=== PATIENT | female | born 1985 | race Caucasian/White ===

== ENCOUNTER 2018-10-06 15:14 | Observation (INO) | payer OTHER ==
--- NOTE | 2018-10-06 15:21 | PDOC ---
Rapid Medical Evaluation Chief Complaint: Syncope/Near Syncope Time Seen by Provider: 10/06/18 15:18 Medical Evaluation: Allergies Allergy/AdvReac Type Severity Reaction Status Date / Time No Known Allergies Allergy Verified 10/06/18 15:18 10/06/18 15:18 The patient presents with a chief complaint of: syncopized hitting right side of head, no recent illness or drug use, hx anxiety I have performed a brief in-person evaluation of this patient: noted hematoma to rt side of eyebrow, vss Pertinent physical exam findings: ambulatory, in no respiratory distress I have ordered the following: ekg, labs, ct head and face The patient will proceed to the ED for further evaluation. Discharge Disposition - Diagnosis Syncope - Discharge Dispostion Disposition: HOME Condition at time of disposition: Stable - Referrals - Patient Instructions - Post Discharge Activity
[2018-10-06 15:55] LABS: BASO % 0.4 % (0-2.0); EOS % 0.1 % (0-4.5); HEMATOCRIT 39.2 % (32.4-45.2); HEMOGLOBIN 13.2 GM/dL (10.7-15.3); LYMPH % 12.3 % (8-40); MCH 28.5 pg (25.7-33.7); MCHC 33.7 g/dl (32.0-36.0); MEAN CELL VOLUME 84.5 fl (80-96); MEAN PLT VOLUME 9.1 fl (7.5-11.1); MONO % 4.3 % (3.8-10.2); NEUT % 82.9 % (42.8-82.8); PLATELET COUNT 258 K/MM3 (134-434); RBC 4.64 M/mm3 (3.60-5.2); WHITE BLOOD COUNT 13.4 K/mm3 (4.0-10.0)
[2018-10-06 16:22] LABS: URINE APPEARANCE SLCLOUDY; URINE BILIRUBIN NEGATIVE (<2.0 mg/dL); URINE COLOR LTYELLOW; URINE GLUCOSE (UA) NEGATIVE (NEGATIVE); URINE KETONE NEGATIVE (NEGATIVE); URINE LEUK ESTERASE NEGATIVE (NEGATIVE); URINE NITRITE NEGATIVE (NEGATIVE); URINE PROTEIN NEGATIVE (NEGATIVE); URINE UROBILINOGEN NEGATIVE mg/dL (0.2-1.0)
[2018-10-06 16:38] LABS: ALBUMIN 3.8 g/dl (3.4-5.0); ALK PHOS 47 U/L (45-117); ANION GAP 7 MMOL/L (8-16); BILIRUBIN,TOTAL 0.1 mg/dL (0.2-1); BLOOD UREA NITROGEN 15 mg/dL (7-18); CALCIUM 9.1 mg/dL (8.5-10.1); CHLORIDE 100 mmol/L (98-107); CO2 26 mmol/L (21-32); CREATININE 1.1 mg/dL (0.55-1.3); GLUCOSE,RANDOM 106 mg/dL (74-106); SGOT/AST 29 U/L (15-37); SGPT/ALT 24 U/L (13-61); SODIUM 133 mmol/L (136-145); TOT PROT 7.6 g/dl (6.4-8.2)
[2018-10-06] MEDS ORDERED: ACETAMINOPHEN 1000 MG/100 ML VIAL (NON FORMULARY) IVPB ONE (16:46)
[2018-10-06] MEDS ORDERED: METOCLOPRAMIDE HCL INJECTION 10 MG/2 ML VIAL IVPUSH ONE (16:46)
[2018-10-06] MEDS ORDERED: SODIUM CHLORIDE 1,000 ML IV STA (16:46)
[2018-10-06] MEDS ORDERED: ACETAMINOPHEN INJECTION 100 ML IVPB ONE (16:54)
[2018-10-06] MEDS ORDERED: METOCLOPRAMIDE HCL INJECTION 10 MG/2 ML VIAL ONE (16:54)
--- NOTE | 2018-10-06 16:59 | PDOC ---
Attending Attestation - HPI HPI: 10/06/18 18:47 Patient is a 33 year old female with history of hypothyroidism and anxiety/ depression who presents to the ER s/p syncopal episode this afternoon. The patient states she noticed her right hand shaking, then stood up to get water and next thing she remembers is waking up on the ground. Denies history of seizures. She reports her brother at 23 from a "possible heart attack." She reports having a negative stress test and ECHO done recently. Patient denies any chest pain, shortness of breath, headache, abdominal pain, dysuria, fevers, chills, nausea, vomiting. No bowel or bladder incontinence. Allergies: NKDA Surgeries: No reported surgeries. Social Hx: No reported alcohol, drug or cigarette use. - Physicial Exam PE: 10/06/18 18:56 ADULT PHYSICAL EXAM Constitutional: Awake, alert, oriented. No acute distress. Head: Normocephalic. Atraumatic Eyes: PERRL. EOMI. Conjunctivae are not pale. (+) soft tissue swelling over the right eye. ENT: (+) Bite jamee to the right side of the tongue with ecchymosis. No laceration/ Cardiovascular: Regular rate. Regular rhythm. S1, S2 regular. Distal pulses are 2+ and symmetric. Pulmonary/Chest: No evidence of respiratory distress. Clear to auscultation bilaterally No wheezing, rales or rhonchi. Abdominal: Soft and non-distended. There is no tenderness. No rebound, guarding or rigidity. No organomegaly. No palpable masses. Good bowel sounds. Back: (+) No C, T, or L spine. Musculoskeletal: No edema. No cyanosis. No clubbing. Full range of motion in all extremities. Nocalf tenderness. Radial/pedal pulses are intact and 2+ bilaterally Skin: Skin is warm and dry. No petechiae. No purpura. No external signs of trauma. Neurological: Strength is 5/5. No tremors. Psychiatric: Good eye contact. Normal interaction, affect and behavior. <Saniya Garcia - Last Filed: 10/06/18 18:59> - Resident Resident Name: Oh Hester - ED Attending Attestation I have performed the following: I have examined & evaluated the patient, The case was reviewed & discussed with the resident, I agree w/resident's findings & plan, Exceptions are as noted - Medical Decision Making 10/06/18 16:56 I, Dr. Ting Watson, DO, attest that this document has been prepared under my direction and personally reviewed by me in its entirety. I further attest, that it accurately reflects all work, treatment, procedures and medical decision -making performed by me. 10/06/18 19:17 a/p: 33yo female with syncope vs seizure today -states r hand shaking and then woke up on the floor -small abrsion/hematoma to R eyebrow -abnl ekg -fam hx of brother from [place]/sudden cardiac at 23 -started supplements for working out a month ago -no change in her welbutrin dose -will send labs, head ct, trop, tsh -sometimes does take extra of thyroid meds -no [place] prior to episode. no cp/sob -on ocp, will add dimer -will need obs for further eval 10/06/18 20:13 resident discussed the case with DAVID who accepts pt to service <Ting Watson - Last Filed: 10/06/18 20:14> Heart Score/ECG Review - ECG Intrepretation Comment:: 10/06/18 19:19 sinus at 93, nl axis, incomplete rbbb, t wave inversions v2-3, abnl ekg <Ting Watson - Last Filed: 10/06/18 20:14>
--- NOTE | 2018-10-06 17:16 | PDOC ---
History of Present Illness - General Chief Complaint: Syncope/Near Syncope Stated Complaint: FALL Time Seen by Provider: 10/06/18 15:18 History Source: Patient Exam Limitations: No Limitations - History of Present Illness Initial Comments: 10/06/18 17:10 Patient is a 33F with history of hypothyroidism and anxiety/depression (on wellbutrin/zoloft) here today complaining of passing out this afternoon. Patient states that she was in the kitchen and the next thing she remembers she was on the floor. She endorses diffuse bodyaches and confusion, stating that she was unable to remember her phone number at first. She denies history of seizures in the past and in the family. She states that her brother at 23 from a "heart attack". She reports that she then saw a service desk technician, had multiple tests done including echo and stress, all of which were negative. Patient reports not sleeping well last night, denies recent alcohol and drug use. LMP 4 weeks ago. Patient complains of pain to her head, denies other focal pain. Denies neck pain , chest pain, abdominal pain, dysuria, fevers, chills, vomiting. Endorses nausea. No bowel or bladder incontinence. Past History - Past Medical History Allergies/Adverse Reactions: Allergies Allergy/AdvReac Type Severity Reaction Status Date / Time No Known Allergies Allergy Verified 10/06/18 15:18 Home Medications: Ambulatory Orders Bupropion HCl [Wellbutrin -] 100 mg PO DAILY 10/06/18 Levothyroxine [Synthroid -] 100 mcg PO DAILY 10/06/18 Sertraline HCl [Zoloft] 100 mg PO DAILY 10/06/18 Zolpidem Tartrate [Ambien] 10 mg PO HS PRN 10/06/18 COPD: No Seizures: Yes Lung CA: Yes - Suicide/Smoking/Psychosocial Hx Smoking History: Never smoked Review of Systems - Review of Systems Comments:: 10/06/18 17:17 GENERAL/CONSTITUTIONAL: No fever or chills. No weakness. HEAD, EYES, EARS, NOSE AND THROAT: No change in vision. No sore throat. CARDIOVASCULAR: No chest pain or shortness of breath RESPIRATORY: No cough, wheezing, or hemoptysis. GASTROINTESTINAL: +nausea, no vomiting, diarrhea or constipation. GENITOURINARY: No dysuria, frequency, or change in urination. MUSCULOSKELETAL: No joint or muscle swelling or pain. No neck or back pain. SKIN: No rash NEUROLOGIC: +headache, +loss of consciousness, no change in strength/sensation. ENDOCRINE: No increased thirst. No abnormal weight change HEMATOLOGIC/LYMPHATIC: No anemia, easy bleeding, or history of blood clots. ALLERGIC/IMMUNOLOGIC: No hives or skin allergy. *Physical Exam - Vital Signs Last Vital Signs Temp Pulse Resp BP Pulse Ox 98.9 F 99 H 18 114/78 100 10/06/18 15:18 10/06/18 15:18 10/06/18 15:18 10/06/18 15:18 10/06/18 15:18 - Physical Exam Comments: 10/06/18 17:19 GENERAL: Awake, alert, and fully oriented, in no acute distress HEAD: Normocephalic, hematoma around right eye, several smaller scratches to face EYES: PERRLA, EOMI, sclera anicteric, conjunctiva clear ENT: Auricles normal inspection, hearing grossly normal, nares patent, tongue bruising and laceration on right lateral aspect of tongue NECK: Normal ROM, supple, no lymphadenopathy, JVD, or masses, no midline tenderness LUNGS: No distress, speaks full sentences, clear to auscultation bilaterally HEART: Regular rate and rhythm, normal S1 and S2, no murmurs, rubs or gallops, peripheral pulses normal and equal bilaterally. ABDOMEN: Soft, nontender, normoactive bowel sounds. No guarding, no rebound. No masses EXTREMITIES: Multiple small bruises and lacerations along lateral aspects of upper and lower extremities, Normal range of motion, no edema. No clubbing or cyanosis. NEUROLOGICAL: Cranial nerves II through XII grossly intact. Normal speech, normal gait, no focal sensorimotor deficits SKIN: Warm, Dry, normal turgor, no rashes or lesions noted. Moderate Sedation - Procedure Monitoring Vital Signs: Procedure Monitoring Vital Signs Temperature 98.9 F 10/06/18 15:18 Pulse Rate 99 H 10/06/18 15:18 Respiratory Rate 18 10/06/18 15:18 Blood Pressure 114/78 10/06/18 15:18 O2 Sat by Pulse Oximetry (%) 100 10/06/18 15:18 ED Treatment Course - LABORATORY CBC & Chemistry Diagram: 10/06/18 15:36 10/06/18 15:36 - ADDITIONAL ORDERS Additional order review: Laboratory Results 10/06/18 10/06/18 10/06/18 16:04 16:04 15:36 Sodium 133 L Potassium 4.0 Chloride 100 Carbon Dioxide 26 Anion Gap 7 L BUN 15 Creatinine 1.1 Creat Clearance w eGFR 56.52 Random Glucose 106 Calcium 9.1 Total Bilirubin 0.1 L AST 29 ALT 24 Alkaline Phosphatase 47 Creatine Kinase 177 Creatine Kinase Index 1.5 CK-MB (CK-2) 2.8 Troponin I < 0.02 Total Protein 7.6 Albumin 3.8 TSH 3.12 Urine Color Ltyellow Urine Appearance Slcloudy Urine pH 6.0 Ur Specific [place] 1.018 Urine Protein Negative Urine Glucose (UA) Negative Urine Ketones Negative Urine Blood Negative Urine Nitrite Negative Urine Bilirubin Negative Urine Urobilinogen Negative Ur Leukocyte Esterase Negative Urine HCG, Qual Negative 10/06/18 15:36 RBC 4.64 MCV 84.5 MCHC 33.7 RDW 14.0 MPV 9.1 Neutrophils % 82.9 H Lymphocytes % 12.3 Monocytes % 4.3 Eosinophils % 0.1 Basophils % 0.4 - RADIOLOGY Radiology Studies Ordered: Category Date Time Status HEAD CT WITHOUT CONTRAST [CT] Stat CT Scan 10/06/18 15:21 Ordered CHEST PA & LAT [RAD] Stat Radiology 10/06/18 16:46 Ordered Medical Decision Making - Medical Decision Making 10/06/18 17:21 Patient is 33F with history of depression/anxiety and hypothyroidism here today with seizure vs syncope. Suspect seizure over syncope at this time, but taking careful consideration of syncope given brothers sudden cardiac . Patient on OCPs, will d-dimer. EKG shows NSR with rate of 93. No st elevations/depressions. Dominant R wave in aVR. T wave inversions in V2/V3. QTc prolonged to 479. RBBB pattern without QRS widening. CBC, CMP normal. Preg negative. Pending d-dimer, ct head/facial bones. C-spine cleared clinically with NEXUS. 10/06/18 20:[address] Greene and Dr Ewing, aware. Patient briefly became hypotensive to 80s systolic, resolved after 10 minutes. Case d/w Dr Ojeda, accepted to tele obs. 10/06/18 20:43 POCUS shows normal cardiac squeeze, no gross wall motion abnormality, no gross valve failures, no effusion, no hypertrophy. *DC/Admit/Observation/Transfer Diagnosis at time of Disposition: Syncope - Discharge Dispostion Condition at time of disposition: Stable Decision to Admit order: Yes - Referrals - Patient Instructions - Post Discharge Activity
[2018-10-06 18:58] LABS: INR 0.97 (0.83-1.09); PROTHROMBIN TIME (PATIENT) 11.4 SEC (9.7-13.0)
--- NOTE | 2018-10-06 20:03 | PN ---
Teaching Attending Note Name of Resident: Veronica Gomez ATTENDING PHYSICIAN STATEMENT I saw and evaluated the patient. I reviewed the resident's note and discussed the case with the resident. I agree with the resident's findings and plan as documented. SUBJECTIVE: Patient is a 33 year old woman with PMH of hypothyroidism, PTSD (after her brother's ) and anxiety/depression (on wellbutrin/zoloft) here today complaining of passing out this afternoon. Patient states that she was in the kitchen and the next thing she remembers she was on the floor. She endorses diffuse bodyaches and confusion, stating that she was unable to remember her phone number at first. She denies history of seizures in the past and in the family. She states that her brother at 23 from a "heart attack". She reports that she then saw a linoleum printer, had multiple tests done including echo and stress, all of which were negative. Patient reports not sleeping well last night, denies recent alcohol and drug use. She is on oral contraceptives and LMP was 4 weeks ago. Patient complains of pain to her head, denies other focal pain. Denies neck pain, chest pain, abdominal pain, dysuria, fevers, chills, vomiting. Has nausea. No bowel or bladder incontinence. OBJECTIVE: Alert Vital Signs Period Temp Pulse Resp BP Sys/Welsh Pulse Ox Last 24 Hr 98.9 F 86-99 18-18 88-114/51-78 97-100 HEENT: No Jaundice, eye redness or discharge, PERRLA, EOMI. Bruise and swelling over right eye; small laceration/bite jamee on right side of tongue. Normocephalic. External ears are normal and hearing is grossly intact. No nasal discharge. Neck: Supple, nontender. No palpable adenopathy or thyromegaly. No JVD Chest: Good effort. Clear to auscultation and percussion. Heart: Regular. No S3, rub or murmur Abdomen: Not distended, soft, nontender and no HSM. No rebound or guarding. Normoactive bowel sounds. Ext: Peripheral pulses intact. No leg edema. Mild right shoulder tenderness. Skin: Warm and dry. No petechiae, rash or ecchymosis. Neuro: Alert. Oriented x3. CN 2-12 grossly intact. Sensation grossly intact in all four extremities and DTR are symmetric. Home Medications Medication Instructions Recorded Bupropion HCl [Wellbutrin -] 100 mg PO DAILY 10/06/18 Levothyroxine [Synthroid -] 100 mcg PO DAILY 10/06/18 Sertraline HCl [Zoloft] 100 mg PO DAILY 10/06/18 Zolpidem Tartrate [Ambien] 10 mg PO HS PRN 10/06/18 Abnormal Lab Results 10/06/18 10/06/18 15:36 15:36 WBC 13.4 H Absolute Neuts (auto) 11.1 H Neutrophils % 82.9 H Sodium 133 L Anion Gap 7 L Total Bilirubin 0.1 L ASSESSMENT AND PLAN: 1. Syncope - Presentation suggestive of a seizure event. Head CT, face CT, CXR and limb xrays did not show any acute abnormality or fracture. EKG is NSR with prolonged QTc and fixed changes of t-wave inversion in V1-3 and P wave inversion in V1. Urine toxicology screen is pending. Leukocytosis is likely stress induced - will repeat CBC. No other evidence of infection. Admit to telemetry, get ECHO, EEG, carotid doppler, Mg, Phosphate and brain MRI. Provide care for bruise over right eye. Implement seizure and fall precautions, consult Neurology and cardiology. 2. DVT prophylaxis - Lovenox 40 mg SQ q 24 hours. 3. Advance directives - Full code
[2018-10-06 21:04] LABS: COCAINE, UR NEGATIVE ng/ml (CUTOFF=300); METHADONE, UR NEGATIVE ng/ml (CUTOFF=300); OPIATES, URI NEGATIVE ng/ml (CUTOFF=300); PHENCYCLIDINE,URINE NEGATIVE ng/ml (CUTOFF=25); URINE AMPHETAMINES NEGATIVE ng/ml (CUTOFF=500); URINE BARBITURATES NEGATIVE ng/ml (CUTOFF=200); URINE BENZODIAZEPINES NEGATIVE ng/ml (CUTOFF=200)
[2018-10-06] MEDS ORDERED: ACETAMINOPHEN 325 MG TABLET (FP) PO PRN (21:16)
--- NOTE | 2018-10-06 21:27 | HP ---
CHIEF COMPLAINT:loss of consciousness PCP: HISTORY OF PRESENT ILLNESS: Patient is a 33 year old female with past medical history of hypothyroidisim, depression, anxiety and migraine, presented to the ED after passing out today. Patient reported she was not able to sleep last night, got up today feeling tired. She reports having a throbbing headache since she got up from bed today. At around noon, patient went into the kitchen, and suddenly felt weak and lightheaded, holding on to the rails. The next thing she remembers she was on the floor, lying down on her right side. She noted that the fridge was pushed aside. She initially got confused, thinking she might just have slept there since she was tired, but noted a bruise on her right eyebrow, a bite on her tongue, and right shoulder pain, then she knew she had fallen. Patient reports she might have passed out for about 30 minutes. She denies any fever, chills, cough, colds, nausea, vomiting, chest pain, SOB, palpitations, abdominal pain, bowel or bladder incontinence. ER course was notable for: (1)HEad CT, CXR, Facial bones CT - no acute pathology (2)Utox: +MDMA (3)EKG: NSR with prolonged QTc and fixed changes of t-wave inversion in V1-3 and P wave inversion in V1 Recent Travel:denies PAST MEDICAL HISTORY: Hypothyroidism Depression Anxiety Migraine PAST SURGICAL HISTORY: none Social History: Smoking: denies Alcohol:denies Drugs: denies Family History: Brother - ?sudden cardiac at 23 Father - of lung CA Allergies No Known Allergies Allergy (Verified 10/06/18 15:18) HOME MEDICATIONS: Home Medications Medication Instructions Recorded Bupropion HCl [Wellbutrin -] 100 mg PO DAILY 10/06/18 Levothyroxine [Synthroid -] 100 mcg PO DAILY 10/06/18 Sertraline HCl [Zoloft] 100 mg PO DAILY 10/06/18 Zolpidem Tartrate [Ambien] 10 mg PO HS PRN 10/06/18 REVIEW OF SYSTEMS CONSTITUTIONAL: Absent: fever, chills, diaphoresis, generalized weakness, malaise, loss of appetite, weight change HEENT: Absent: rhinorrhea, nasal congestion, throat pain, throat swelling, difficulty swallowing, mouth swelling, ear pain, eye pain, visual changes CARDIOVASCULAR: Absent: chest pain, syncope, palpitations, irregular heart rate, lightheadedness , peripheral edema RESPIRATORY: Absent: cough, shortness of breath, dyspnea with exertion, orthopnea, wheezing, stridor, hemoptysis GASTROINTESTINAL: Absent: abdominal pain, abdominal distension, nausea, vomiting, diarrhea, constipation, melena, hematochezia GENITOURINARY: Absent: dysuria, frequency, urgency, hesitancy, hematuria, flank pain, genital pain MUSCULOSKELETAL: Absent: myalgia, arthralgia, joint swelling, back pain, neck pain SKIN: Absent: rash, itching, pallor HEMATOLOGIC/IMMUNOLOGIC: Absent: easy bleeding, easy bruising, lymphadenopathy, frequent infections ENDOCRINE: Absent: unexplained weight gain, unexplained weight loss, heat intolerance, cold intolerance NEUROLOGIC: Absent: headache, focal weakness or paresthesias, dizziness, unsteady gait, seizure, mental status changes, bladder or bowel incontinence PSYCHIATRIC: Absent: anxiety, depression, suicidal or homicidal ideation, hallucinations. PHYSICAL EXAMINATION Vital Signs - 24 hr 10/06/18 10/06/18 10/06/18 15:18 19:07 19:20 Temperature 98.9 F Pulse Rate 99 H Pulse Rate [ 86 92 H Apical] Respiratory 18 18 18 Rate Blood Pressure 114/78 Blood Pressure 88/51 L 101/69 [Right Arm] O2 Sat by Pulse 100 97 100 Oximetry (%) 10/06/18 10/06/18 10/06/18 19:30 20:00 20:42 Temperature Pulse Rate Pulse Rate [ 96 H 89 Apical] Respiratory 20 20 Rate Blood Pressure Blood Pressure 106/80 103/74 [Right Arm] O2 Sat by Pulse 98 99 99 Oximetry (%) GENERAL: Awake, alert, and fully oriented, in no acute distress. HEAD: +bruise on the lateral right eyebrow EYES: PERRLA, EOMI, sclera anicteric, conjunctiva clear. EARS, NOSE, THROAT: Ears normal, oropharynx clear +tongue bite wound. Moist mucous membranes. NECK: Normal range of motion, supple without lymphadenopathy, JVD, or masses. LUNGS: Breath sounds equal, clear to auscultation bilaterally. HEART: Regular rate and rhythm, normal S1 and S2 without murmur, rub or gallop. ABDOMEN: Soft, nontender, not distended, normoactive bowel sounds. MUSCULOSKELETAL: Normal range of motion at all joints. No CVA tenderness. UPPER EXTREMITIES: 2+ pulses, warm, well-perfused. No peripheral edema. LOWER EXTREMITIES: 2+ pulses, warm, well-perfused. No peripheral edema. NEUROLOGICAL: AAOx3, Cranial nerves II-XII intact. Motor strength 5/5, sensation intact. Normal speech. Normal gait. PSYCHIATRIC: Cooperative. Good eye contact. Appropriate mood and affect. SKIN: Warm, dry, normal turgor, no rashes or lesions. Laboratory Results - last 24 hr 10/06/18 10/06/18 10/06/18 15:36 15:36 16:04 WBC 13.4 H RBC 4.64 Hgb 13.2 Hct 39.2 MCV 84.5 MCH 28.5 MCHC 33.7 RDW 14.0 Plt Count 258 MPV 9.1 Absolute Neuts (auto) 11.1 H Neutrophils % 82.9 H Lymphocytes % 12.3 Monocytes % 4.3 Eosinophils % 0.1 Basophils % 0.4 Nucleated RBC % 0 PT with INR INR D-Dimer Sodium 133 L Potassium 4.0 Chloride 100 Carbon Dioxide 26 Anion Gap 7 L BUN 15 Creatinine 1.1 Creat Clearance w eGFR 56.52 Random Glucose 106 Calcium 9.1 Total Bilirubin 0.1 L AST 29 ALT 24 Alkaline Phosphatase 47 Creatine Kinase 177 Creatine Kinase Index 1.5 CK-MB (CK-2) 2.8 Troponin I < 0.02 Total Protein 7.6 Albumin 3.8 TSH 3.12 Urine Color Urine Appearance Urine pH Ur Specific [place] Urine Protein Urine Glucose (UA) Urine Ketones Urine Blood Urine Nitrite Urine Bilirubin Urine Urobilinogen Ur Leukocyte Esterase Urine HCG, Qual Negative Opiates Screen Methadone Screen Barbiturate Screen Phencyclidine Screen Ur Amphetamines Screen MDMA (Ecstasy) Screen Benzodiazepines Screen Cocaine Screen U Marijuana (THC) Screen 10/06/18 10/06/18 10/06/18 16:04 17:47 17:47 WBC RBC Hgb Hct MCV MCH MCHC RDW Plt Count MPV Absolute Neuts (auto) Neutrophils % Lymphocytes % Monocytes % Eosinophils % Basophils % Nucleated RBC % PT with INR 11.40 INR 0.97 D-Dimer 442 Sodium Potassium Chloride Carbon Dioxide Anion Gap BUN Creatinine Creat Clearance w eGFR Random Glucose Calcium Total Bilirubin AST ALT Alkaline Phosphatase Creatine Kinase Creatine Kinase Index CK-MB (CK-2) Troponin I Total Protein Albumin TSH Urine Color Ltyellow Urine Appearance Slcloudy Urine pH 6.0 Ur Specific [place] 1.018 Urine Protein Negative Urine Glucose (UA) Negative Urine Ketones Negative Urine Blood Negative Urine Nitrite Negative Urine Bilirubin Negative Urine Urobilinogen Negative Ur Leukocyte Esterase Negative Urine HCG, Qual Opiates Screen Methadone Screen Barbiturate Screen Phencyclidine Screen Ur Amphetamines Screen MDMA (Ecstasy) Screen Benzodiazepines Screen Cocaine Screen U Marijuana (THC) Screen 10/06/18 20:24 WBC RBC Hgb Hct MCV MCH MCHC RDW Plt Count MPV Absolute Neuts (auto) Neutrophils % Lymphocytes % Monocytes % Eosinophils % Basophils % Nucleated RBC % PT with INR INR D-Dimer Sodium Potassium Chloride Carbon Dioxide Anion Gap BUN Creatinine Creat Clearance w eGFR Random Glucose Calcium Total Bilirubin AST ALT Alkaline Phosphatase Creatine Kinase Creatine Kinase Index CK-MB (CK-2) Troponin I Total Protein Albumin TSH Urine Color Urine Appearance Urine pH Ur Specific [place] Urine Protein Urine Glucose (UA) Urine Ketones Urine Blood Urine Nitrite Urine Bilirubin Urine Urobilinogen Ur Leukocyte Esterase Urine HCG, Qual Opiates Screen Negative Methadone Screen Negative Barbiturate Screen Negative Phencyclidine Screen Negative Ur Amphetamines Screen Negative MDMA (Ecstasy) Screen Positive A* Benzodiazepines Screen Negative Cocaine Screen Negative U Marijuana (THC) Screen Negative ASSESSMENT/PLAN: Patient is a 33 year old female with past medical history of hypothyroidisim, depression, anxiety and migraine, presented to the ED after a syncopal episode today. #Loss of consciousness: syncope vs seizure -Utox +MDMA, may be false positive with bupropion? -Head CT, facial bone CT and CXR showed no acute pathology -EKG showed T wave abnormalities -Leukocytosis (13.9) likely reactive, will repeat CBC -Tele monitoring -Carotid doppler -Echo -A1c, Lipid profile, Mg, Phos -Neuro checks, seizure precautions -Fall risk precautions -Neurology (Dr. Greene) consulted -Cardiology (Dr. Ewing) consulted #Hypothyroidism -Continue Synthroid 100mcg daily #Depression -Continue Bupropion 100mg daily #FEN -Not on any standing fluids -Encourage increased oral fluid intake -Electrolytes wnl, routine bmp monitoring -Regular diet #Prophylaxis -Lovenox 40mg sq daily #Disposition -full code -tele obs Visit type - Emergency Visit Emergency Visit: Yes ED Registration Date: 10/06/18 Care time: The patient presented to the Emergency Department on the above date and was hospitalized for further evaluation of their emergent condition. - New Patient This patient is new to me today: Yes Date on this admission: 10/10/18 - Critical Care Critical Care patient: No
[2018-10-06] MEDS ORDERED: SODIUM CHLORIDE 1,000 ML IV SCH (21:30)
[2018-10-06] MEDS ORDERED: ACETAMINOPHEN 325 MG TABLET (FP) ONE (22:08)
[2018-10-07] MEDS ORDERED: IBUPROFEN 400 MG TABLET (FP) PO PRN (00:49)
[2018-10-07 05:19] VITALS: BMI 25.9
[2018-10-07] MEDS ORDERED: ACETAMINOPHEN/CAFFEINE/BUTALBITAL 1 TAB PO ONE (06:33)
[2018-10-07] MEDS ORDERED: LEVOTHYROXINE NA 100 MCG TABLET (FP) PO SCH (07:00)
[2018-10-07 07:07] LABS: BASO % 0.5 % (0-2.0); EOS % 2.3 % (0-4.5); HEMATOCRIT 33.1 % (32.4-45.2); HEMOGLOBIN 11.3 GM/dL (10.7-15.3); LYMPH % 41.1 % (8-40); MCH 29.1 pg (25.7-33.7); MCHC 34.1 g/dl (32.0-36.0); MEAN CELL VOLUME 85.2 fl (80-96); MEAN PLT VOLUME 9.1 fl (7.5-11.1); MONO % 8.9 % (3.8-10.2); NEUT % 47.2 % (42.8-82.8); PLATELET COUNT 212 K/MM3 (134-434); RBC 3.89 M/mm3 (3.60-5.2); RDW 13.8 % (11.6-15.6)
[2018-10-07 08:20] LABS: CHOLESTEROL 183 mg/dL (50-200); HDL CHOLESTEROL 46 mg/dL (40-60); TRIGLYCERIDES 144 mg/dL (0-150)
[2018-10-07] MEDS ORDERED: PT OWN MED DRAWER 7, Y5N ONE (09:45)
[2018-10-07] MEDS ORDERED: ENOXAPARIN NA (PORCINE) 40 MG/0.4 ML DISP.SYRIN SQ SCH (10:00)
[2018-10-07] MEDS ORDERED: buPROPion HCL 100 MG TABLET PO SCH (10:00)
--- NOTE | 2018-10-07 10:07 | ECHO ---
Name: FLETCHER, DONTAE C Exam:Adult Echocardiogram Study Date: 10/07/2018 07:35 AM Age: 33 yrs Reason For Study: SYNCOPE Height: 63 in Weight: 135 lb BSA: 1.6 m2 MMode/2D Measurements & Calculations IVSd: 0.89 cm Ao root diam: 2.3 cm LVIDd: 4.0 cm LA dimension: 3.1 cm LVIDs: 2.8 cm LVPWd: 0.86 cm EDV(Teich): 71.5 ml LVOT diam: 2.0 cm ESV(Teich): 30.7 ml LAV (MOD-bp): 34.5 ml Doppler Measurements & Calculations MV E max luc: 81.5 cm/sec Ao V2 max: 171.0 cm/sec MV A max luc: 62.1 cm/sec Ao max P.7 mmHg MV E/A: 1.3 AI P1/2t: 699.3 msec MV dec time: 0.10 sec MARLENE(V,D): 1.7 cm2 AI max luc: 347.5 cm/sec LV V1 max P.4 mmHg AI max P.3 mmHg LV V1 max: 92.2 cm/sec AI dec slope: 145.5 cm/sec2 TR max luc: 219.9 cm/sec PA V2 max: 108.6 cm/sec TR max P.3 mmHg PA max P.7 mmHg Med Peak E' Luc: 10.3 cm/sec PI Vmax: 95.0 cm/sec Med E/e': 7.9 Lat Peak E' Luc: 10.4 cm/sec Lat E/e': 7.8 Left Ventricle Left ventricular systolic function is normal. Ejection Fraction = 55-60%. Right Ventricle The right ventricle is normal in size and function. Atria Normal left and right atrial size and function. Mitral Valve The mitral valve is normal in structure and function. There is no mitral valve stenosis. There is tra ce to mild mitral regurgitation. Tricuspid Valve The tricuspid valve is normal in structure and function. There is mild tricuspid regurgitation. Aortic Valve The aortic valve is trileaflet. No hemodynamically significant valvular aortic stenosis. Mild aortic regurgitation. Pulmonic Valve The pulmonic valve is not well seen, but is grossly normal. There is no pulmonic valvular stenosis. M ild pulmonic valvular regurgitation. Great Vessels The aortic root is normal size. Pericardium/Pleura There is no pericardial effusion. Interpretation Summary Left ventricular systolic function is normal. Ejection Fraction = 55-60%. The right ventricle is normal in size and function. There is trace to mild mitral regurgitation. There is mild tricuspid regurgitation. Mild aortic regurgitation. There is no pericardial effusion. MD Barajas *Allison 10/07/2018 10:07 AM
--- NOTE | 2018-10-07 10:27 | EKG ---
Test Reason : Blood Pressure : / mmHG Vent. Rate : 071 BPM Atrial Rate : 071 BPM P-R Int : 136 ms QRS Dur : 090 ms QT Int : 402 ms P-R-T Axes : 053 022 033 degrees QTc Int : 436 ms POOR DATA QUALITY, INTERPRETATION MAY BE ADVERSELY AFFECTED NORMAL SINUS RHYTHM RSR' OR QR PATTERN IN V1 SUGGESTS RIGHT VENTRICULAR CONDUCTION DELAY ABNORMAL ECG WHEN COMPARED WITH ECG OF 06-OCT-2018 15:27, NO SIGNIFICANT CHANGE WAS FOUND Confirmed by BRANDY SALES MD ([id number]) on 10/07/2018 10:27:05 AM Referred By: Confirmed By:BRANDY SALES MD
--- NOTE | 2018-10-07 10:30 | EKG ---
Test Reason : Blood Pressure : / mmHG Vent. Rate : 093 BPM Atrial Rate : 093 BPM P-R Int : 124 ms QRS Dur : 104 ms QT Int : 386 ms P-R-T Axes : 054 044 049 degrees QTc Int : 479 ms NORMAL SINUS RHYTHM INCOMPLETE RIGHT BUNDLE BRANCH BLOCK PROLONGED QT ABNORMAL ECG NO PREVIOUS ECGS AVAILABLE Confirmed by BRANDY SALES MD ([id number]) on 10/07/2018 10:30:35 AM Referred By: Confirmed By:BRANDY SALES MD
[2018-10-07] MEDS ORDERED: SUMAtriptan SUCCINATE 25 MG TABLET PO ONE (10:31)
--- NOTE | 2018-10-07 11:27 | CON.CARD ---
Cardiology Consult (text) - Consultation Consultation Note: cc: syncope hpi: 33 f hx hypothyroid here with syncope. Last night was working at home and was sitting and started to feel weak. She stood up to get water and when standing by kitchen counter she fainted and fell to ground. No cp, sob palps pnd orthopnea le edema. No prior episodes. Does not drink much fluids. Feels better now. Exercises often w/o limiting sxs. pmh: per hpi psh: no surgery social: no tob fam: brother in 20s, exact cause unknown but pt reports he was found to have a congenital heart abnormality ros: per hpi; no nvd fever gib hematuria dysuria wt loss [place] vision changes meds: Home Medications Medication Instructions Recorded Bupropion HCl [Wellbutrin -] 100 mg PO DAILY 10/06/18 Levothyroxine [Synthroid -] 100 mcg PO DAILY 10/06/18 Sertraline HCl [Zoloft] 100 mg PO DAILY 10/06/18 Zolpidem Tartrate [Ambien] 10 mg PO HS PRN 10/06/18 pe: Vital Signs Period Temp Pulse Resp BP Sys/Welsh Pulse Ox Last 24 Hr 97.8 F-98.9 F 84-99 18-20 88-121/51-80 97-100 nad no jvd rrr s1s2 no mrg cta bl nl eff aaox3 no le e/c/c abd nt nd pos bs no jaundice diaphoresis pos dp pt no carotid bruits Laboratory Last Values WBC 8.0 K/mm3 (4.0-10.0) 10/07/18 05:30 RBC 3.89 M/mm3 (3.60-5.2) 10/07/18 05:30 Hgb 11.3 GM/dL (10.7-15.3) 10/07/18 05:30 Hct 33.1 % (32.4-45.2) D 10/07/18 05:30 MCV 85.2 fl (80-96) 10/07/18 05:30 MCH 29.1 pg (25.7-33.7) 10/07/18 05:30 MCHC 34.1 g/dl (32.0-36.0) 10/07/18 05:30 RDW 13.8 % (11.6-15.6) 10/07/18 05:30 Plt Count 212 K/MM3 (134-434) 10/07/18 05:30 MPV 9.1 fl (7.5-11.1) 10/07/18 05:30 Absolute Neuts (auto) 3.8 K/mm3 (1.5-8.0) 10/07/18 05:30 Neutrophils % 47.2 % (42.8-82.8) D 10/07/18 05:30 Lymphocytes % 41.1 % (8-40) H D 10/07/18 05:30 Monocytes % 8.9 % (3.8-10.2) D 10/07/18 05:30 Eosinophils % 2.3 % (0-4.5) D 10/07/18 05:30 Basophils % 0.5 % (0-2.0) 10/07/18 05:30 Nucleated RBC % 0 % (0-0) 10/07/18 05:30 PT with INR 11.40 SEC (9.7-13.0) 10/06/18 17:47 INR 0.97 (0.83-1.09) 10/06/18 17:47 D-Dimer 442 ng/ml (0-500) 10/06/18 17:47 Sodium 133 mmol/L (136-145) L 10/06/18 15:36 Potassium 4.0 mmol/L (3.5-5.1) 10/06/18 15:36 Chloride 100 mmol/L (98-107) 10/06/18 15:36 Carbon Dioxide 26 mmol/L (21-32) 10/06/18 15:36 Anion Gap 7 MMOL/L (8-16) L 10/06/18 15:36 BUN 15 mg/dL (7-18) 10/06/18 15:36 Creatinine 1.1 mg/dL (0.55-1.3) 10/06/18 15:36 Creat Clearance w eGFR 56.52 (>60) 10/06/18 15:36 Random Glucose 106 mg/dL (74-106) 10/06/18 15:36 Calcium 9.1 mg/dL (8.5-10.1) 10/06/18 15:36 Total Bilirubin 0.1 mg/dL (0.2-1) L 10/06/18 15:36 AST 29 U/L (15-37) 10/06/18 15:36 ALT 24 U/L (13-61) 10/06/18 15:36 Alkaline Phosphatase 47 U/L (45-117) 10/06/18 15:36 Creatine Kinase 177 U/L (26-192) 10/06/18 15:36 Creatine Kinase Index 1.5 % (0.0-5.0) 10/06/18 15:36 CK-MB (CK-2) 2.8 ng/mL (0.5-3.6) 10/06/18 15:36 Troponin I < 0.02 ng/ml (0.00-0.05) 10/06/18 15:36 Total Protein 7.6 g/dl (6.4-8.2) 10/06/18 15:36 Albumin 3.8 g/dl (3.4-5.0) 10/06/18 15:36 Triglycerides 144 mg/dL (0-150) 10/07/18 05:30 Cholesterol 183 mg/dL (50-200) 10/07/18 05:30 Total LDL Cholesterol 118 mg/dL (5-100) H 10/07/18 05:30 HDL Cholesterol 46 mg/dL (40-60) 10/07/18 05:30 TSH 3.12 uIU/ml (0.358-3.74) 10/06/18 15:36 Urine Color Ltyellow 10/06/18 16:04 Urine Appearance Slcloudy 10/06/18 16:04 Urine pH 6.0 (5.0-8.0) 10/06/18 16:04 Ur Specific [place] 1.018 (1.010-1.035) 10/06/18 16:04 Urine Protein Negative (NEGATIVE) 10/06/18 16:04 Urine Glucose (UA) Negative (NEGATIVE) 10/06/18 16:04 Urine Ketones Negative (NEGATIVE) 10/06/18 16:04 Urine Blood Negative (NEGATIVE) 10/06/18 16:04 Urine Nitrite Negative (NEGATIVE) 10/06/18 16:04 Urine Bilirubin Negative (<2.0 mg/dL) 10/06/18 16:04 Urine Urobilinogen Negative mg/dL (0.2-1.0) 10/06/18 16:04 Ur Leukocyte Esterase Negative (NEGATIVE) 10/06/18 16:04 Urine HCG, Qual Negative 10/06/18 16:04 Opiates Screen Negative ng/ml (JUULCZ=164) 10/06/18 20:24 Methadone Screen Negative ng/ml (ZSZAWI=059) 10/06/18 20:24 Barbiturate Screen Negative ng/ml (XPSAUZ=369) 10/06/18 20:24 Phencyclidine Screen Negative ng/ml (CUTOFF=25) 10/06/18 20:24 Ur Amphetamines Screen Negative ng/ml (IHRSZS=506) 10/06/18 20:24 MDMA (Ecstasy) Screen Positive ng/ml (BTIVKA=608) A* 10/06/18 20:24 Benzodiazepines Screen Negative ng/ml (GZUAOU=146) 10/06/18 20:24 Cocaine Screen Negative ng/ml (PWGLNF=800) 10/06/18 20:24 U Marijuana (THC) Screen Negative ng/ml (CUTOFF=50) 10/06/18 20:24 tele:sr echo 10/2018: nl lv/rv, mild ar, mild tr cxr: clear lungs ecg: sr, nl intervals, nonspec tw changes a/p: 33 f hx hypothyroid here with syncope. syncope: -seems vasovagal based on description -echo and tele benign here -no signs acs, chf, arrhythmia -pt's brother in 20s, exact cause unknown but pt reports he was found to have a congenital heart abnormality. after this she was seen by cardiology in [place] 2 yrs ago and had heart testing including echo and stress test she reports were normal -neuro eval pending, if no etiology then would have pt f/u for event monitor as outpt
[2018-10-07 12:41] LABS: ANION GAP 6 MMOL/L (8-16); BLOOD UREA NITROGEN 13 mg/dL (7-18); CALCIUM 7.9 mg/dL (8.5-10.1); CHLORIDE 113 mmol/L (98-107); CO2 22 mmol/L (21-32); CREATININE 0.9 mg/dL (0.55-1.3); GLUCOSE,RANDOM 91 mg/dL (74-106); PHOSPHOROUS 3.5 mg/dL (2.5-4.9); SODIUM 141 mmol/L (136-145)
--- NOTE | 2018-10-07 13:01 | PN ---
Teaching Attending Note Name of Resident: Johnathan Gaviria ATTENDING PHYSICIAN STATEMENT I saw and evaluated the patient. I reviewed the resident's note and discussed the case with the resident. I agree with the resident's findings and plan as documented. SUBJECTIVE: Feels well - no CP/palpitations/lightheadedness/limb numbness/ weakness/tingling. Mild headache with light sensitivity - no neck stiffness. No fever/chills. OBJECTIVE: Afebrile, Hemodynamically Stable. Last Vital Signs Temp Pulse Resp BP Pulse Ox 97.9 F 86 20 121/69 99 10/07/18 09:00 10/07/18 09:00 10/07/18 09:00 10/07/18 09:00 10/07/18 05:17 HEENT - Atraumatic, Normocephalic Heart - S1, S2, RRR Lungs - clear to auscultation. Abdomen - soft, non-tender. Bowel Sounds normal. Extremities - no edema, no calf tenderness. Laboratory Results - last 24 hr 10/06/18 10/06/18 10/06/18 15:36 15:36 16:04 WBC 13.4 H RBC 4.64 Hgb 13.2 Hct 39.2 MCV 84.5 MCH 28.5 MCHC 33.7 RDW 14.0 Plt Count 258 MPV 9.1 Absolute Neuts (auto) 11.1 H Neutrophils % 82.9 H Lymphocytes % 12.3 Monocytes % 4.3 Eosinophils % 0.1 Basophils % 0.4 Nucleated RBC % 0 PT with INR INR D-Dimer Sodium 133 L Potassium 4.0 Chloride 100 Carbon Dioxide 26 Anion Gap 7 L BUN 15 Creatinine 1.1 Creat Clearance w eGFR 56.52 Random Glucose 106 Calcium 9.1 Phosphorus Magnesium Total Bilirubin 0.1 L AST 29 ALT 24 Alkaline Phosphatase 47 Creatine Kinase 177 Creatine Kinase Index 1.5 CK-MB (CK-2) 2.8 Troponin I < 0.02 Total Protein 7.6 Albumin 3.8 Triglycerides Cholesterol Total LDL Cholesterol HDL Cholesterol TSH 3.12 Urine Color Urine Appearance Urine pH Ur Specific [place] Urine Protein Urine Glucose (UA) Urine Ketones Urine Blood Urine Nitrite Urine Bilirubin Urine Urobilinogen Ur Leukocyte Esterase Urine HCG, Qual Negative Opiates Screen Methadone Screen Barbiturate Screen Phencyclidine Screen Ur Amphetamines Screen MDMA (Ecstasy) Screen Benzodiazepines Screen Cocaine Screen U Marijuana (THC) Screen 10/06/18 10/06/18 10/06/18 16:04 17:47 17:47 WBC RBC Hgb Hct MCV MCH MCHC RDW Plt Count MPV Absolute Neuts (auto) Neutrophils % Lymphocytes % Monocytes % Eosinophils % Basophils % Nucleated RBC % PT with INR 11.40 INR 0.97 D-Dimer 442 Sodium Potassium Chloride Carbon Dioxide Anion Gap BUN Creatinine Creat Clearance w eGFR Random Glucose Calcium Phosphorus Magnesium Total Bilirubin AST ALT Alkaline Phosphatase Creatine Kinase Creatine Kinase Index CK-MB (CK-2) Troponin I Total Protein Albumin Triglycerides Cholesterol Total LDL Cholesterol HDL Cholesterol TSH Urine Color Ltyellow Urine Appearance Slcloudy Urine pH 6.0 Ur Specific [place] 1.018 Urine Protein Negative Urine Glucose (UA) Negative Urine Ketones Negative Urine Blood Negative Urine Nitrite Negative Urine Bilirubin Negative Urine Urobilinogen Negative Ur Leukocyte Esterase Negative Urine HCG, Qual Opiates Screen Methadone Screen Barbiturate Screen Phencyclidine Screen Ur Amphetamines Screen MDMA (Ecstasy) Screen Benzodiazepines Screen Cocaine Screen U Marijuana (THC) Screen 10/06/18 10/07/18 10/07/18 20:24 05:30 05:30 WBC 8.0 RBC 3.89 Hgb 11.3 Hct 33.1 D MCV 85.2 MCH 29.1 MCHC 34.1 RDW 13.8 Plt Count 212 MPV 9.1 Absolute Neuts (auto) 3.8 Neutrophils % 47.2 D Lymphocytes % 41.1 H D Monocytes % 8.9 D Eosinophils % 2.3 D Basophils % 0.5 Nucleated RBC % 0 PT with INR INR D-Dimer Sodium 141 Potassium 4.0 Chloride 113 H Carbon Dioxide 22 Anion Gap 6 L BUN 13 Creatinine 0.9 Creat Clearance w eGFR > 60 Random Glucose 91 Calcium 7.9 L Phosphorus 3.5 Magnesium 2.0 Total Bilirubin AST ALT Alkaline Phosphatase Creatine Kinase Creatine Kinase Index CK-MB (CK-2) Troponin I Total Protein Albumin Triglycerides 144 Cholesterol 183 Total LDL Cholesterol 118 H HDL Cholesterol 46 TSH Urine Color Urine Appearance Urine pH Ur Specific [place] Urine Protein Urine Glucose (UA) Urine Ketones Urine Blood Urine Nitrite Urine Bilirubin Urine Urobilinogen Ur Leukocyte Esterase Urine HCG, Qual Opiates Screen Negative Methadone Screen Negative Barbiturate Screen Negative Phencyclidine Screen Negative Ur Amphetamines Screen Negative MDMA (Ecstasy) Screen Positive A* Benzodiazepines Screen Negative Cocaine Screen Negative U Marijuana (THC) Screen Negative Current Medications Generic Name Dose Route Start Last Admin Trade Name Roslyn PRN Reason Stop Dose Admin Acetaminophen 650 mg 10/06/18 21:16 10/06/18 22:07 Tylenol - PO 650 mg Q6H PRN Administration PAIN OR FEVER Bupropion HCl 100 mg 10/07/18 10:00 10/07/18 09:55 Wellbutrin - PO Not Given DAILY SYL Enoxaparin Sodium 40 mg 10/07/18 10:00 10/07/18 09:53 Lovenox - SQ 40 mg DAILY SYL Administration Ibuprofen 400 mg 10/07/18 00:49 10/07/18 09:54 Motrin - PO 400 mg Q6H PRN Administration PAIN LEVEL 6-10 Levothyroxine Sodium 100 mcg 10/07/18 07:00 10/07/18 06:33 Synthroid - PO 100 mcg AM SYL Administration Home Medications Medication Instructions Recorded Bupropion HCl [Wellbutrin -] 100 mg PO DAILY 10/06/18 Levothyroxine [Synthroid -] 100 mcg PO DAILY 10/06/18 Sertraline HCl [Zoloft] 100 mg PO DAILY 10/06/18 Zolpidem Tartrate [Ambien] 10 mg PO HS PRN 10/06/18 ASSESSMENT AND PLAN: 33 year old female with history of Hypothyroidisim, Depression, Anxiety and Migraine, presented to the ED after syncopal episode. She reports preceeding lightheadedness but no chest pain/palpitations. Her next memory was waking up on floor with bruise on R forehead and bite on her tongue, unknown duration of LOC. 1. Syncope, likely Vasovagal, possible Seizure CT Head - no acute intracranial findings CT Facial Bones - no fracture ECG - SR, non-specific T wave abnormality No overnight telemonitoring events. Utox positive for MDMA (known cross-reactivity with Wellbutrin) Echo - Normal EF, mild TR/mild MR/mild AR. US Carotid/EEG pending Evaluated by Cardiology - likely vasovagal, for out-patient follow up with Holter Awaiting Neuro evaluation and possible discharge if work-up is negative 2. Hypothyroidism - TSH 3.12 - Continue Synthroid 100mcg daily 3. Depression -Continue Bupropion and Sertraline. DVT Px - Lovenox
--- NOTE | 2018-10-07 16:18 | PN ---
Physical Exam: SUBJECTIVE: Patient seen and examined at bedside. no acute events since admission. deneis fever, chills, cp, sob, dizzy, n/v/d, urinary sxs. Mild headache with light sensitivity - no neck stiffness. cleared by cardio, awaiting neuro eval OBJECTIVE: Vital Signs Period Temp Pulse Resp BP Sys/Welsh Pulse Ox Last 24 Hr 97.8 F-98.4 F 84-96 18-20 88-121/51-80 97-100 GENERAL: Awake, alert, and fully oriented, in no acute distress. HEAD: +bruise on the lateral right eyebrow EYES: PERRLA, EOMI, sclera anicteric, conjunctiva clear. EARS, NOSE, THROAT: Ears normal, oropharynx clear +tongue bite wound. Moist mucous membranes. NECK: Normal range of motion, supple without lymphadenopathy, JVD, or masses. LUNGS: Breath sounds equal, clear to auscultation bilaterally. HEART: Regular rate and rhythm, normal S1 and S2 without murmur, rub or gallop. ABDOMEN: Soft, nontender, not distended, normoactive bowel sounds. MUSCULOSKELETAL: Normal range of motion at all joints. No CVA tenderness. UPPER EXTREMITIES: 2+ pulses, warm, well-perfused. No peripheral edema. LOWER EXTREMITIES: 2+ pulses, warm, well-perfused. No peripheral edema. NEUROLOGICAL: AAOx3, Cranial nerves II-XII intact. Motor strength 5/5, sensation intact. Normal speech. Normal gait. PSYCHIATRIC: Cooperative. Good eye contact. Appropriate mood and affect. SKIN: Warm, dry, normal turgor, no rashes or lesions. Laboratory Results - last 24 hr 10/06/18 10/06/18 10/06/18 15:36 16:04 16:04 WBC RBC Hgb Hct MCV MCH MCHC RDW Plt Count MPV Absolute Neuts (auto) Neutrophils % Lymphocytes % Monocytes % Eosinophils % Basophils % Nucleated RBC % PT with INR INR D-Dimer Sodium 133 L Potassium 4.0 Chloride 100 Carbon Dioxide 26 Anion Gap 7 L BUN 15 Creatinine 1.1 Creat Clearance w eGFR 56.52 Random Glucose 106 Calcium 9.1 Phosphorus Magnesium Total Bilirubin 0.1 L AST 29 ALT 24 Alkaline Phosphatase 47 Creatine Kinase 177 Creatine Kinase Index 1.5 CK-MB (CK-2) 2.8 Troponin I < 0.02 Total Protein 7.6 Albumin 3.8 Triglycerides Cholesterol Total LDL Cholesterol HDL Cholesterol TSH 3.12 Urine Color Ltyellow Urine Appearance Slcloudy Urine pH 6.0 Ur Specific [place] 1.018 Urine Protein Negative Urine Glucose (UA) Negative Urine Ketones Negative Urine Blood Negative Urine Nitrite Negative Urine Bilirubin Negative Urine Urobilinogen Negative Ur Leukocyte Esterase Negative Urine HCG, Qual Negative Opiates Screen Methadone Screen Barbiturate Screen Phencyclidine Screen Ur Amphetamines Screen MDMA (Ecstasy) Screen Benzodiazepines Screen Cocaine Screen U Marijuana (THC) Screen 10/06/18 10/06/18 10/06/18 17:47 17:47 20:24 WBC RBC Hgb Hct MCV MCH MCHC RDW Plt Count MPV Absolute Neuts (auto) Neutrophils % Lymphocytes % Monocytes % Eosinophils % Basophils % Nucleated RBC % PT with INR 11.40 INR 0.97 D-Dimer 442 Sodium Potassium Chloride Carbon Dioxide Anion Gap BUN Creatinine Creat Clearance w eGFR Random Glucose Calcium Phosphorus Magnesium Total Bilirubin AST ALT Alkaline Phosphatase Creatine Kinase Creatine Kinase Index CK-MB (CK-2) Troponin I Total Protein Albumin Triglycerides Cholesterol Total LDL Cholesterol HDL Cholesterol TSH Urine Color Urine Appearance Urine pH Ur Specific [place] Urine Protein Urine Glucose (UA) Urine Ketones Urine Blood Urine Nitrite Urine Bilirubin Urine Urobilinogen Ur Leukocyte Esterase Urine HCG, Qual Opiates Screen Negative Methadone Screen Negative Barbiturate Screen Negative Phencyclidine Screen Negative Ur Amphetamines Screen Negative MDMA (Ecstasy) Screen Positive A* Benzodiazepines Screen Negative Cocaine Screen Negative U Marijuana (THC) Screen Negative 10/07/18 10/07/18 05:30 05:30 WBC 8.0 RBC 3.89 Hgb 11.3 Hct 33.1 D MCV 85.2 MCH 29.1 MCHC 34.1 RDW 13.8 Plt Count 212 MPV 9.1 Absolute Neuts (auto) 3.8 Neutrophils % 47.2 D Lymphocytes % 41.1 H D Monocytes % 8.9 D Eosinophils % 2.3 D Basophils % 0.5 Nucleated RBC % 0 PT with INR INR D-Dimer Sodium 141 Potassium 4.0 Chloride 113 H Carbon Dioxide 22 Anion Gap 6 L BUN 13 Creatinine 0.9 Creat Clearance w eGFR > 60 Random Glucose 91 Calcium 7.9 L Phosphorus 3.5 Magnesium 2.0 Total Bilirubin AST ALT Alkaline Phosphatase Creatine Kinase Creatine Kinase Index CK-MB (CK-2) Troponin I Total Protein Albumin Triglycerides 144 Cholesterol 183 Total LDL Cholesterol 118 H HDL Cholesterol 46 TSH Urine Color Urine Appearance Urine pH Ur Specific [place] Urine Protein Urine Glucose (UA) Urine Ketones Urine Blood Urine Nitrite Urine Bilirubin Urine Urobilinogen Ur Leukocyte Esterase Urine HCG, Qual Opiates Screen Methadone Screen Barbiturate Screen Phencyclidine Screen Ur Amphetamines Screen MDMA (Ecstasy) Screen Benzodiazepines Screen Cocaine Screen U Marijuana (THC) Screen Active Medications Generic Name Dose Route Start Last Admin Trade Name Freq PRN Reason Stop Dose Admin Acetaminophen 650 mg 10/06/18 21:16 10/06/18 22:07 Tylenol - PO 650 mg Q6H PRN Administration PAIN OR FEVER Bupropion HCl 100 mg 10/07/18 10:00 10/07/18 09:55 Wellbutrin - PO Not Given DAILY SYL Enoxaparin Sodium 40 mg 10/07/18 10:00 10/07/18 09:53 Lovenox - SQ 40 mg DAILY SYL Administration Ibuprofen 400 mg 10/07/18 00:49 10/07/18 09:54 Motrin - PO 400 mg Q6H PRN Administration PAIN LEVEL 6-10 Levothyroxine Sodium 100 mcg 10/07/18 07:00 10/07/18 06:33 Synthroid - PO 100 mcg AM SYL Administration ASSESSMENT/PLAN: Patient is a 33 year old female with past medical history of hypothyroidisim, depression, anxiety and migraine, presented to the ED after a syncopal episode today. #Loss of consciousness: syncope vs seizure: likely Vasovagal, possible Seizure -Utox positive for MDMA (known cross-reactivity with Wellbutrin) -Head CT, facial bone CT and CXR showed no acute pathology -EKG showed non-specific T wave abnormalities, trop negx1 No overnight telemonitoring events. -Tele monitoring -UA neg -US Carotid/EEG pending -Echo - Normal EF, mild TR/mild MR/mild AR. -A1c, Lipid profile, Mg, Phos -Neuro checks, seizure precautions -Fall risk precautions -Evaluated by Cardiology - likely vasovagal, for out-patient follow up with Holter -Awaiting Neuro evaluation and possible discharge if work-up is negative -Neurology (Dr. Greene) consulted -Cardiology (Dr. Ewing) consulted #Hypothyroidism - TSH 3.12 -Continue Synthroid 100mcg daily #Depression -Continue Bupropion 100mg daily migraine sumatriptan x1 tylenol/ibuprofen prn #FEN -Not on any standing fluids -Encourage increased oral fluid intake -Electrolytes wnl, routine bmp monitoring -Regular diet #Prophylaxis -Lovenox 40mg sq daily #Disposition -full code -tele obs Visit type - Emergency Visit Emergency Visit: Yes ED Registration Date: 10/06/18 Care time: The patient presented to the Emergency Department on the above date and was hospitalized for further evaluation of their emergent condition. - New Patient This patient is new to me today: Yes Date on this admission: 10/07/18 - Critical Care Critical Care patient: No
--- NOTE | 2018-10-07 20:48 | HOSP ---
Physical Examination Vital Signs: Vital Signs Temperature 98.1 F 10/07/18 17:00 Pulse Rate 74 10/07/18 17:00 Respiratory Rate 20 10/07/18 17:00 Blood Pressure 116/69 10/07/18 17:00 O2 Sat by Pulse Oximetry (%) 99 10/07/18 12:46 Labs: CBC, BMP 10/07/18 05:30 10/07/18 05:30 Hospitalist Encounter Assessment: patient eloped: stated that she was not getting any care here and did not want to stay any longer. I asked patient to sign AMA form and she refused- she was found in the elevator leaving with boyfriend stating she did not want to sign any sheet. The patient did not have any IVs when she was leaving- nurses and ammunition specialist witnessed event. Visit type - Emergency Visit Emergency Visit: Yes ED Registration Date: 10/06/18 Care time: The patient presented to the Emergency Department on the above date and was hospitalized for further evaluation of their emergent condition. - New Patient This patient is new to me today: Yes Date on this admission: 10/07/18 - Critical Care Critical Care patient: No
[2018-10-07 21:02] VITALS: BP 138/95; PULSE 96; TEMP 98
--- NOTE | 2018-10-10 07:04 | DS ---
Physical Exam: SUBJECTIVE: Patient eloped on 10/07/18. : stated that she was not getting any care here and did not want to stay any longer. Physician motion graphics artist asked patient to sign AMA form and she refused- she was found in the elevator leaving with boyfriend stating she did not want to sign any sheet. The patient did not have any IVs when she was leaving- nurses and hospital unit clerk witnessed event. OBJECTIVE: PHYSICAL EXAM Patient eloped on 10/07/18. LABS HOSPITAL COURSE: Date of Admission:10/06/18 Date of Discharge: 10/10/18 33 year old female with past medical history of hypothyroidisim, depression, anxiety and migraine, presented to the ED after a syncopal episode today. Admitted for Loss of consciousness: syncope vs seizure: likely Vasovagal, possible Seizure. VSS -Neurology (Dr. Greene) consulted -Cardiology (Dr. Ewing) consulted -Utox positive for MDMA (known cross-reactivity with Wellbutrin) -Head CT, facial bone CT and CXR showed no acute pathology -EKG showed non-specific T wave abnormalities, trop negx1, ACS unlikely as cause for LOC, pt is cp free. No overnight telemonitoring events. -UA neg -Echo - Normal EF, mild TR/mild MR/mild AR. -A1c 4.5, Lipid profile - LDL 118, pt not a candidate for statin, low ascvd score -Evaluated by Cardiology - likely vasovagal, for out-patient follow up with Holter -US Carotid/EEG were not obtained, pt eloped -Was Awaiting Neuro evaluation and possible discharge if work-up negative, however pt eloped before being seen by neuro #Hypothyroidism - TSH 3.12 -Continued Synthroid 100mcg daily #Depression -Continued Bupropion 100mg daily migraine sumatriptan x1 was given tylenol/ibuprofen prn Patient eloped on 10/07/18. : stated that she was not getting any care here and did not want to stay any longer. Physician motion graphics artist asked patient to sign AMA form and she refused- she was found in the elevator leaving with boyfriend stating she did not want to sign any sheet. The patient did not have any IVs when she was leaving- nurses and hospital unit clerk witnessed event. pt is stable Minutes to complete discharge: 38 Discharge Summary Reason For Visit: SYNCOPE Condition: Stable - Instructions Diet, Activity, Other Instructions: you came in because you passed out at home. we gave you fluids. chest X-ray and CT imaging of your head and face showed no fracture and was normal. Ultrasound of your heart was normal. You were seen by the nurse advocate who recommended you follow up in the office to get a Holter event monitor which will record the electrical activity of your heart for 24 hours. This will allow us to see if there are any electrical issues that may have caused you to pass out. Please resume your home meds. Please follow up with your primary care physician within 1 week. Please follow up with Hospital Pharmacy Director Dr. Muro within 1 week. Please follow up with Neurologist within 1 week. If you experience any more passing out, severe worsening of headache, or seizure like activity including whole body shakes, tongue biting, losing bowel and urinary control, or any chest pain, shortness of breath, fevers, chills, nausea, vomit, diarrhea, numbness or tingling, please call 911 or go to the ER. Referrals: Magdy Muro MD [Staff Physician] - 1 Week Disposition: ELOPED - Home Medications Comprehensive Discharge Medication List: Ambulatory Orders Bupropion HCl [Wellbutrin -] 100 mg PO DAILY 10/06/18 Levothyroxine [Synthroid -] 100 mcg PO DAILY 10/06/18 Sertraline HCl [Zoloft] 100 mg PO DAILY 10/06/18 Zolpidem Tartrate [Ambien] 10 mg PO HS PRN 10/06/18 This patient is new to me today: Yes Date on this admission: 10/10/18 Emergency Visit: Yes ED Registration Date: 10/06/18 Care time: The patient presented to the Emergency Department on the above date and was hospitalized for further evaluation of their emergent condition. Critical Care patient: No - Discharge Referral Referred to [facility] No
== END 2018-10-07 21:18 | disposition left against medical advice (07) ==
LOC: JER 15:14 → JERBED 20:09 → J4W 10-07 00:38
PROVIDERS: ADMIT Internal Medicine
PROC: 3E033NZ Introduction of Analgesics, Hypnotics, Sedatives into Peripheral Vein, Percutaneous Approach (ICD-10-PCS; principal; 2018-10-06)
PROC: 3E0337Z Introduction of Electrolytic and Water Balance Substance into Peripheral Vein, Percutaneous Approach (ICD-10-PCS; 2018-10-06)
PROC: 3E033GC Introduction of Other Therapeutic Substance into Peripheral Vein, Percutaneous Approach (ICD-10-PCS; 2018-10-06)
PROC: 3E013GC Introduction of Other Therapeutic Substance into Subcutaneous Tissue, Percutaneous Approach (ICD-10-PCS; 2018-10-06)
DX: R55 Syncope and collapse (principal); E03.9 Hypothyroidism, unspecified; F41.9 Anxiety disorder, unspecified; F32.9 Major depressive disorder, single episode, unspecified; F43.10 Post-traumatic stress disorder, unspecified; G43.909 Migraine, unspecified, not intractable, without status migrainosus
CPT/HCPCS: 36415; 70450-TC; 70486-TC; 71046-TC-FY; 80048; 80053; 80061; 80307; 81003; 82550; 82553; 83036; 83721; 83735; 84100; 84443; 84484; 84703; 85025; 85379; 85610; 93005; 93010; 93306-TC; 93880-TC; 99285-25; G0378; J0131; J7030